=== PATIENT | female | born 1935 | race Hispanic/Latino ===

== ENCOUNTER 2017-02-10 11:53 | Emergency (ER) | payer MEDICARE, BC ==
[~2017-02-10] VITALS: Ht 157.5 cm; Wt 62.1 kg
[~2017-02-10 11:53] MED LIST: ASPIRIN EC81 MG PO; DIOVAN HCT 1601 EACH PO; LOPRESSOR25 MG PO; PLAVIX75 MG PO; PRAVASTATIN SOD10 MG PO
== END 2017-02-10 14:35 | disposition left against medical advice (07) ==
LOC: ER 11:53
DX: T54.91XA Toxic effect of unspecified corrosive substance, accidental (unintentional), initial encounter (principal)
CPT/HCPCS: 99281

== ENCOUNTER → 2019-10-22 | Outpatient (RCR) | payer MEDICARE, BC | LOC: PT 09-28 14:03 | PROVIDERS: ATTEND Specialist | DX: M17.12 Unilateral primary osteoarthritis, left knee (principal); M25.562 Pain in left knee ==

== ENCOUNTER 2019-10-24 13:15 | Outpatient (RCR) | payer MEDICARE, BC | END 2019-11-21 | LOC: PT 13:15 | PROVIDERS: ATTEND Specialist | DX: M25.562 Pain in left knee (principal); M17.12 Unilateral primary osteoarthritis, left knee | CPT/HCPCS: 97139 ==